=== PATIENT | female | born 1960 | race Two or more races ===

== ENCOUNTER → 2023-02-10 13:43 | Outpatient (REF) | payer OTHER, SELFPAY ==
--- NOTE | 2023-02-10 13:49 | CA_ITS ---
Transthoracic Echocardiogram Patient (Last, First, Middle): Vicki Balbuena, Gender: Female Date of : 1960 Age: 63 Procedure Date: 02/10/2023 Procedure Type: Transthoracic Echocardiogram Location: OP Height: 160.02 cm Weight: 78.47 kg BSA: 1.82 m2 Heart Rate: bpm BP: 130 / 78 mmHg Warp Hand: TO Referring MD: Koby Choi MD Cut Off Operator Scorer: Philippe Poole MD Symptoms: RHEUMATIC MITRAL STENOSIS Study Quality: Fair ECG Rhythm: Sinus Conclusions: - 1. Normal LV ejection fraction 55-60% 2. Moderately dilated left atrium 3. 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 Normal RV systolic pressure 5. No gross pericardial effusion Findings Left Ventricle Normal left ventricular size, thickness, and systolic function. The visually estimated ejection fraction is between 55-60%. Diastolic function is indeterminate on the basis of available data. Right Ventricle Normal right ventricular cavity size and systolic function. Atria The left atrium is moderately dilated. There is no evidence of interatrial shunt. The right atrium is normal in size. Aortic Valve Normal aortic valve structure and function. There is no aortic valve stenosis. There is no aortic valve regurgitation. Mitral Valve The mitral valve appears rheumatic. There is moderate anterior and posterior mitral leaflet thickening. The posterior mitral leaflet has restricted mobility. There is mild anterior and mild posterior mitral annular calcification. There is trace mitral valve regurgitation. There is moderate to severe mitral valve stenosis. Calculated valve area by continuity equation and planimetry is around 1.05 cm2. Pulmonic Valve The pulmonic valve is likely normal. There is trace pulmonic valve regurgitation. Tricuspid Valve Normal tricuspid valve structure. There is trace tricuspid valve regurgitation. The right ventricular systolic pressure is normal. The right ventricular systolic pressure is 19 mmHg. Normal right atrial pressure. There is no evidence of pulmonary hypertension. Great Vessels All visible segments of the aorta are normal in size. The pulmonary artery was not well visualized. Venous The inferior vena cava is normal in size and collapses greater than 50% with inspiration. Pericardium/Pleural There is no evidence of pericardial effusion. Prior Study Comparison No prior study available for comparison. Measurements 2D Linear Measurements IVSd: 1.04 0.6-0.9/0.6-1.0 cm LVIDd: 4.36 3.9-5.3/4.2-5.9 cm LVIDd Index: 2.40 2.4-3.2/2.2-3.1 cm/m2 LVIDs: 2.69 2.0-3.6 cm LVPWd: 0.79 0.7-1.1 cm LA Diam: 4.10 2.7-3.8/3.0-4.0 cm LAIDs Index: 2.25 1.5-2.3 cm/m2 LV Mass: 160.23 67-162/88-224 g LV Mass Index: 88.04 43-95/49-115 g/m2 LVOT Diam: 1.70 3.0+(-)1.3 cm 2D Systolic Function EF 4C: 59.90 >55% EF 2C: 61.00 >55% EF BiP: 59.70 >55% Mitral Valve MV VTI: 0.57 MV Pk Gilbert: 1.98 MV Mn Gilbert: 1.16 MV Pk Grad: 16.00 MV Mn Grad: 6.00 MV Pk E: 1.65 MV PK A: 1.23 MV Decel Time: 359.00 E/A: 1.30 E'Lateral: 8.05 E'Medial: 6.31 E/E' Med: 26.10 E/E' Lat: 20.50 PHT: 105.00 MVA PHT: 2.10 MVA Continuity: 0.94 Decel Jay: 4.60 Aortic Valve AoV Pk Gilbert: 1.64 AoV Mn Gilbert: 1.14 AoV VTI: 0.37 AoV Pk Grad: 11.00 Aov Mn Grad: 6.00 GARRY Cont.VTI: 1.47 LVOT LVOT Pk Gilbert: 1.06 LVOT Mn Gilbert: 0.77 LVOT VTI: 0.24 LVOT Pk Grad: 4.00 LVOT Mn Grad: 3.00 LVOT Diam: 1.70 LVOT Area: 2.27 Diastolic Function MV Pk E: 1.65 MV Pk A: 1.23 E/A: 1.30 E'Medial: 6.31 E/E' Med: 26.10 E' Laterial: 8.05 E/E' Lat: 20.50 Right Ventricle TAPSE (mm): 26.00 TVS' Gilbert: 13.20 Tricuspid Valve TR Pk Gilbert: 1.97 TR Pk Grad: 16.00 RA Press: 3.00 RVSP: 19.00 Great Vessels Aorta Sinus of Valsalva: 2.46 2.0-3.[address] Ridge: 2.05 1.7-3.4 cm Ao Asc: 2.70 2.1-3.4 cm Updated in Other Vendor System with Status of Final Philippe Poole MD electronically signed on 02/11/2023 12:32:18 PM with status of Final
== END ==
LOC: HO.CARD 13:43
PROVIDERS: PCP Internal Medicine; Visit Provider Internal Medicine Cardiovascular Disease
DX: I05.0 Rheumatic mitral stenosis (principal)
CPT/HCPCS: 93306

== ENCOUNTER → 2023-02-10 13:49 | Outpatient (BNV) | payer OTHER, SELFPAY | PROVIDERS: PCP Internal Medicine; Visit Provider Internal Medicine Cardiovascular Disease | DX: I05.0 Rheumatic mitral stenosis (principal) | CPT/HCPCS: 93306 ==